=== PATIENT | female | born 1970 | race Caucasian/White ===

== ENCOUNTER 2019-07-05 04:03 | Emergency (ER) | payer OTHER ==
[~2019-07-05] VITALS: Ht 165.1 cm; Wt 81.6 kg
--- NOTE | 2019-07-05 04:24 | NUR ---
JONATHAN FROM HOME WITH FRIEND. TO ER BED 3. AAOX4. NO RESP DISTRESS. WHEEL TO ROOM ON W/C. C/O L HIP PAIN. PT REPORTS THAT SHE HAD A FALL ON THE 06/14/19 AND PROKE HER FEMUR THEN HAD SURGERY ON THE OF June STATED BY THE PT. SHE WAS HEN PLACED IN A REHABILITATION FACILITY HOWEVER SHE SIGNED HER SELF OUT AFTER A COUPLE OF DAYS. PT THEN REPORTS THAT SHE WENT TO [facility] BECAUSE OF THE PAIN AND FOUND A DVT ON HER L LEG. PT WAS PRESCRIBED WITH MEDICATION, A BLOOD THINNER WHICH PATIENT CANT RECALL THE NAME. PT STILL COMPLAINS OF LEFT HIP PAIN WHICH SHE TAKES NORCO WHICH IS INEFFECTIVE. AT BEDSIDE FOR EVAL. ORDERS RECEIVED, NOTED AND CARRIED OUT
[2019-07-05] MEDS ORDERED: ONDANSETRON 4 MG TAB.RAPDIS SL ONE (04:30)
[2019-07-05] MEDS ORDERED: HYDROMORPHONE INJ 2 MG/ML DISP.SYRIN IM ONE (04:30)
[2019-07-05] MEDS ORDERED: ONDANSETRON 4 MG TAB.RAPDIS ONE (04:44)
[2019-07-05] MEDS ORDERED: HYDROMORPHONE INJ 2 MG/ML DISP.SYRIN ONE (04:44)
--- NOTE | 2019-07-05 05:21 | NUR ---
XRAY AND US AT BEDSIDE
--- NOTE | 2019-07-05 06:02 | NUR ---
Patient discharged to home in stable condition. Written and verbal after care instructions given. Patient verbalizes understanding of instruction.
[2019-07-05 06:47] VITALS: BP 130/65
== END 2019-07-05 06:51 | disposition home or self-care (01) ==
LOC: ER 04:08
DX: M79.605 Pain in left leg (principal); G40.909 Epilepsy, unspecified, not intractable, without status epilepticus; I11.0 Hypertensive heart disease with heart failure; I50.9 Heart failure, unspecified; Z98.890 Other specified postprocedural states
CPT/HCPCS: 72170; 93971; 96372; 99284; J1170; Q0162

== ENCOUNTER 2019-09-22 01:04 | Emergency (ER) | payer OTHER ==
[~2019-09-22] VITALS: Ht 167.6 cm; Wt 68.0 kg
--- NOTE | 2019-09-22 01:19 | NUR ---
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
--- NOTE | 2019-09-22 01:30 | NUR ---
NO LLE SHORTENING OR EXTERNAL ROTATION NOTED. PT IS ABLE TO WIGGLE HER TOES AND MOVE HER LEG. PT STATED THAT SHE TAKES DILAUDID AT HOME FOR THE PAIN.
--- NOTE | 2019-09-22 01:30 | NUR ---
PT PRESENTED TO THE ER WITH A C/O L HIP PAIN S/P TRIP AND FALL ON SUNDAY. PT TOOK AN UBER TO THE ER AND WAS TAKEN TO ER 4 VIA WC.
--- NOTE | 2019-09-22 01:37 | NUR ---
XRAY IN PROGRESS AT THE BEDSIDE.
[2019-09-22] MEDS ORDERED: KETOROLAC TROMETHAMINE INJ 60 MG/2 ML VIAL IM ONE (01:48)
[2019-09-22] MEDS: KETOROLAC TROMETHAMINE INJ 60 MG/2 ML VIAL IM ONE (01:53)
--- NOTE | 2019-09-22 01:53 | NUR ---
PT REC'D MEDICATION ORDERED.
--- NOTE | 2019-09-22 02:39 | NUR ---
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 BERNARD IS ON HER WAY TO THE ER.
--- NOTE | 2019-09-22 02:46 | NUR ---
Patient discharged to home in stable condition. Written and verbal after care instructions given. Patient verbalizes understanding of instruction AND RX. PT TO BE PICKED UP BY HER FRIEND AND TAKEN TO THE CAR VIA WC. VSS. PT TO TAKE HER BP MEDICATION WHEN SHE GETS HOME.
[2019-09-22 02:47] VITALS: BP 190/86
== END 2019-09-22 02:48 | disposition home or self-care (01) ==
LOC: ER 01:11
DX: S70.02XA Contusion of left hip, initial encounter (principal); G40.909 Epilepsy, unspecified, not intractable, without status epilepticus; I11.0 Hypertensive heart disease with heart failure; I50.9 Heart failure, unspecified; Z98.890 Other specified postprocedural states; Z88.8 Allergy status to other drugs, medicaments and biological substances; W18.39XA Other fall on same level, initial encounter; Y93.89 Activity, other specified; Y92.89 Other specified places as the place of occurrence of the external cause; Y99.8 Other external cause status
CPT/HCPCS: 73503; 96372; 99283; J1885; 73502

== ENCOUNTER 2020-04-16 00:46 | Emergency (ER) | payer OTHER ==
[~2020-04-16] VITALS: Ht 167.6 cm; Wt 79.4 kg
[2020-04-16 00:56] VITALS: BP 118/76
[2020-04-16] MEDS ORDERED: CEPHALEXIN MONOHYDRATE 500 MG CAPSULE PO ONE ×2 (01:14→01:30)
--- NOTE | 2020-04-16 01:19 | NUR ---
Patient discharged to home in stable condition. Written and verbal after care instructions given. Patient verbalizes understanding of instruction. Pt ambulatory with a steady gait
== END 2020-04-16 01:20 | disposition home or self-care (01) ==
LOC: ER 00:50
DX: L03.116 Cellulitis of left lower limb (principal); G40.909 Epilepsy, unspecified, not intractable, without status epilepticus; I11.0 Hypertensive heart disease with heart failure; I50.9 Heart failure, unspecified; F43.10 Post-traumatic stress disorder, unspecified; F41.9 Anxiety disorder, unspecified; Z98.890 Other specified postprocedural states; Z88.8 Allergy status to other drugs, medicaments and biological substances; Z86.718 Personal history of other venous thrombosis and embolism

== ENCOUNTER 2020-12-23 17:18 | Emergency (ER) | payer OTHER ==
[~2020-12-23] VITALS: Ht 167.6 cm; Wt 72.6 kg
--- NOTE | 2020-12-23 17:20 | NUR ---
The patient bib her friend for c/o side of the abdomen hurts going to back. The patient rates pain 10/10. Also, c/o nausea. Denies SOB. Respiration regular. The patient is in ER bed #6. Warm blanket provided for comfort. Will continue to monitor.
[2020-12-23] MEDS ORDERED: MORPHINE SULFATE INJ 2 MG/ML DISP.SYRIN IV ONE ×2 (17:30→19:30)
[2020-12-23] MEDS ORDERED: ONDANSETRON HCL/PF 4 MG/2 ML VIAL IVP ONE (17:30)
[2020-12-23] MEDS ORDERED: KETOROLAC TROMETHAMINE INJ 30 MG/ML VIAL IV ONE (17:30)
[2020-12-23] MEDS ORDERED: diphenhydrAMINE HCL 50 MG/ML VIAL IV ONE ×2 (17:30→19:30)
[2020-12-23] MEDS ORDERED: IV NS 0.9% 1,000 ML BAG IV ONE (17:30)
[2020-12-23] MEDS ORDERED: KETOROLAC TROMETHAMINE 15 MG/ML VIAL ONE (17:36)
[2020-12-23] MEDS ORDERED: ONDANSETRON HCL/PF 4 MG/2 ML VIAL ONE (17:36)
[2020-12-23] MEDS ORDERED: MORPHINE SULFATE INJ 4 MG/ML DISP.SYRIN ONE ×2 (17:36→19:23)
[2020-12-23] MEDS ORDERED: diphenhydrAMINE HCL 50 MG/ML VIAL ONE ×2 (17:38→19:23)
[2020-12-23 17:47] LABS: BASOPHILS # (AUTO) 0.1 /CMM (0.0-0.2); BASOPHILS % (AUTO) 0.6 % (0.0-2.0); EOSINOPHILS % (AUTO) 2.1 % (0.0-6.0); HEMATOCRIT 42 % (33-45); HEMOGLOBIN 13.4 g/dL (11.5-14.8); LYMPHOCYTES # (AUTO) 1.8 /CMM (0.8-4.8); LYMPHOCYTES % (AUTO) 17.1 % (20.0-44.0); MEAN CORPUSCULAR HGB CONC 32 g/dl (31.0-36.0); MEAN CORPUSCULAR VOLUME 78 fL (82-100); MONOCYTES # (AUTO) 0.6 /CMM (0.1-1.30); NEUTROPHILS # (AUTO) 7.8 /CMM (1.8-8.9); NEUTROPHILS % (AUTO) 74.2 % (43.0-81.0); PLATELET COUNT (AUTO) 278 /CMM (150-450); RED BLOOD CELL COUNT(AUTO) 5.33 MIL/uL (4.0-5.2); WHITE BLOOD COUNT (AUTO) 10.5 K/uL (4.3-11.0)
[2020-12-23 18:18] LABS: ALBUMIN 3.5 g/dL (3.4-5.0); BILIRUBIN,DIRECT 0.1 mg/dL (0.0-0.2); BILIRUBIN,TOTAL 0.3 mg/dL (0.2-1.0); CALCIUM, SERUM 9.1 mg/dL (8.5-10.1); CREATININE 1.3 mg/dL (0.6-1.3); POTASSIUM 4.2 mmol/L (3.5-5.1); TOTAL PROTEIN, SERUM 7.5 g/dL (6.4-8.2)
--- NOTE | 2020-12-23 19:00 | NUR ---
Patient taken to CT.
--- NOTE | 2020-12-23 19:00 | NUR ---
THE PATIENT IS BACK FROM CT IN STABLE CONDITION.
[2020-12-23 19:11] LABS: BILIRUBIN,URINE NEGATIVE (NEGATIVE); COLOR,URINE YELLOW (YELLOW); LEUKOCYTE ESTERASE ,URINE NEGATIVE (NEGATIVE); NITRITE, URINE NEGATIVE (NEGATIVE); PROTEIN,URINE TRACE mg/dl (NEGATIVE); UGLUCOSE NEGATIVE (NEGATIVE); UROBILINOGEN,URINE 0.2 EU/dL (0.2)
[2020-12-23 19:15] LABS: RBC,URINE 81-100 /HPF (0-2)
[2020-12-23 19:16] LABS: BACTERIA,URINE 1+ /HPF (None Seen); MUCUS,URINE Few /LPF (None Seen); SQUAMOUS EPITHELIAL CELL,UR 0-2 /HPF (None Seen); WBC,URINE 0-2 /HPF (0-3)
[2020-12-23] MEDS ORDERED: ONDA4TAB5 PO (20:14)
[2020-12-23] MEDS ORDERED: IBUP-1955 PO (20:14)
[2020-12-23] MEDS ORDERED: HYDR-4303 PO (20:14)
[2020-12-23] MEDS ORDERED: DIPH25CA83 PO (20:14)
[2020-12-23] MEDS ORDERED: TAMS-12 PO (20:14)
[2020-12-23] MEDS ORDERED: TAMSULOSIN 0.4 MG CAP.SR.24H ONE (20:22)
[2020-12-23] MEDS ORDERED: TAMSULOSIN 0.4 MG CAP.SR.24H PO ONE (20:30)
[2020-12-23 20:37] VITALS: BP 142/77
--- NOTE | 2020-12-23 20:37 | NUR ---
Patient discharged to home in stable condition. Written and verbal after care instructions given. Patient verbalizes understanding of instruction. The patient left ER in stable conditon.
== END 2020-12-23 20:38 | disposition home or self-care (01) ==
LOC: ER 17:22
DX: N13.2 Hydronephrosis with renal and ureteral calculous obstruction (principal); G40.909 Epilepsy, unspecified, not intractable, without status epilepticus; I11.0 Hypertensive heart disease with heart failure; I50.9 Heart failure, unspecified; F43.10 Post-traumatic stress disorder, unspecified; F41.9 Anxiety disorder, unspecified; Z98.890 Other specified postprocedural states; Z88.8 Allergy status to other drugs, medicaments and biological substances; Z79.899 Other long term (current) drug therapy
CPT/HCPCS: 36415; 74176; 80048; 80076; 81001; 83690; 84702; 84703; 85025; 96361; 96374; 96375; 96376; 99284; J1200 ×2; J1885; J2270 ×2; J2405; J7030